=== PATIENT | female | born 1955 | race Caucasian/White ===

== ENCOUNTER 2018-12-27 14:25 | Emergency (ER) | payer OTHER ==
[2018-12-27 14:47] VITALS: BP 101/67
--- NOTE | 2018-12-27 15:44 | UC ---
Complaint Female HPI - HPI Summary HPI Summary: 63-year-old woman comes in with a chief complaint of urinary frequency and urgency. Patient reports his been going on for weeks. Worse in the last week. No fevers no chills. No flank pain. - History Of Current Complaint Chief Complaint: UCGU Stated Complaint: FREQUENT URINATION Time Seen by Provider: 12/27/18 14:56 Pain Intensity: 0 - Allergies/Home Medications Allergies/Adverse Reactions: Allergies Allergy/AdvReac Type Severity Reaction Status Date / Time aripiprazole [From Abilify] Allergy Dizziness Verified 12/27/18 14:55 aspirin Allergy Unknown Verified 12/27/18 14:55 Reaction Details bee venom protein (honey bee) Allergy Anaphylatic Verified 12/27/18 14:55 Shock citalopram [From Celexa] Allergy Swelling Verified 12/27/18 14:55 codeine Allergy Unknown Verified 12/27/18 14:55 Reaction Details escitalopram [From Lexapro] Allergy See Comment Verified 12/27/18 14:55 formaldehyde Allergy Rash Verified 12/27/18 14:55 nickel Allergy Rash Verified 12/27/18 14:55 Penicillins Allergy Airway Verified 12/27/18 14:55 Obstruction allergy shots Allergy Anaphylatic Uncoded 12/27/18 14:55 Shock sleeping pills Allergy Unknown Uncoded 12/27/18 14:55 Reaction Details steroids Allergy Pain Uncoded 12/27/18 14:55 Home Medications: Home Medications NK [No Home Medications Reported] 12/27/18 [History Confirmed 12/27/18] PMH/Surg Hx/FS Hx/Imm Hx Previously Healthy: Yes - Surgical History Surgical History: Yes Surgery Procedure, Year, and Place: eye surgery x2 for lazy eye. T&A - Family History Known Family History: Positive: Non-Contributory - Social History Alcohol Use: None Substance Use Type: None Smoking Status (MU): Never Smoked Tobacco Review of Systems All Other Systems Reviewed And Are Negative: Yes Constitutional: Positive: Negative Skin: Positive: Negative Eyes: Positive: Negative ENT: Positive: Negative Respiratory: Positive: Negative Cardiovascular: Positive: Negative Gastrointestinal: Positive: Negative Genitourinary: Positive: Frequency, Urgency Motor: Positive: Negative Neurovascular: Positive: Negative Musculoskeletal: Positive: Negative Neurological: Positive: Negative Psychological: Positive: Negative Is Patient Immunocompromised?: No Physical Exam Triage Information Reviewed: Yes Appearance: Well-Appearing, No Pain Distress, Well-Nourished Vital Signs: Initial Vital Signs Temp 99.3 F 12/27/18 14:39 Pulse 77 12/27/18 14:39 Resp 16 12/27/18 14:39 BP 101/67 12/27/18 14:39 Pulse Ox 97 12/27/18 14:39 Vital Signs Reviewed: Yes Eye Exam: Normal Eyes: Positive: Conjunctiva Clear Neck: Positive: Supple Respiratory: Positive: Lungs clear, Normal breath sounds, No respiratory distress Cardiovascular: Positive: RRR Abdomen Description: Positive: Nontender, Soft. Negative: CVA Tenderness (R), CVA Tenderness (L) Musculoskeletal: Positive: Strength Intact, ROM Intact Neurological: Positive: Alert Psychological: Positive: Age Appropriate Behavior Skin Exam: Normal Complaint Female Dx - Course Course Of Treatment: No evidence of UTI at this time. There is no glucose in the urine. - Differential Dx/Diagnosis Provider Diagnosis: Increased urinary frequency, Hematuria Discharge - Sign-Out/Discharge Documenting (check all that apply): Patient Departure All imaging exams completed and their final reports reviewed: No Studies - Discharge Plan Condition: Stable Disposition: HOME Patient Education Materials: Hematuria (ED), Urinary Urgency and Frequency (DC) Referrals: Ace Smith MD [Medical Doctor] - Pop Burroughs MD [Medical Doctor] - Additional Instructions: FOLLOW UP WITH UROLOGY. GET RECHECKED SOONER IF YOUR CONDITION WORSENS OR ANY QUESTIONS OR CONCERNS. - Billing Disposition and Condition Condition: STABLE Disposition: Home
== END 2018-12-27 16:11 | disposition home or self-care (01) ==
LOC: UCEAST 14:25
DX: R35.0 Frequency of micturition (principal); R31.9 Hematuria, unspecified; Z88.5 Allergy status to narcotic agent; Z88.0 Allergy status to penicillin
CPT/HCPCS: 81002; 99211; G0463